=== PATIENT | male | born 1955 | race Caucasian/White ===

== ENCOUNTER 2019-09-12 10:17 | Emergency (ER) | payer OTHER ==
[~2019-09-12] VITALS: Ht 180.3 cm; Wt 77.1 kg
[2019-09-12] MEDS ORDERED: TRUVADA 200 MG1 EACH PO (11:30)
== END 2019-09-12 11:51 | disposition home or self-care (01) ==
LOC: ER 10:17
DX: Z20.6 Contact with and (suspected) exposure to human immunodeficiency virus [HIV] (principal)